=== PATIENT | female | born 1990 | race Caucasian/White ===

== ENCOUNTER 2016-06-30 20:10 | Emergency (ER) | payer BC ==
[2016-06-30 20:33] VITALS: RESP 18
[2016-06-30 22:16] LABS: Appearance,Urine Clear (Clear); Bilirubin,Urine Negative (Negative); Glucose,Urine (UA) Negative (Negative); Ketones,Urine Negative (Negative); Leukocyte Esterase,Urine Negative (Negative); Nitrite,Urine Negative (Negative); Protein,Urine Negative (Negative); Specific Gravity,Urine 1.012 (1.001-1.035); UA Billing (MACRO vs. MICRO) CHEM; Urobilinogen,Urine <2.0 mg/dL (<2.0)
--- NOTE | 2016-06-30 22:51 | ED ---
Female Urogenital HPI - General Chief complaint: Vaginal Bleeding Stated complaint: vaginal bleeding/14 wks preg Time Seen by Provider: 06/30/16 21:48 Source: patient, RN notes reviewed Mode of arrival: ambulatory - History of Present Illness Initial comments: 26-year-old female presents to the emergency department with a chief complaint of vaginal discharge. Patient states that she has had a clear vodka done a week ago. Patient states today she has had a gush of fluid that was yellow week clear. Patient states that since resolved but now she is having like a yellow white brownie-type discharge. Patient states she's been no pain or cramping. Patient states she called her OUTPATIENT PHARMACY MANAGER and she was referred here. Patient is a . Patient states that at this time she is not having any symptoms besides little bit of brown-like discharge. Patient denies any other complaints. Patient denies any recent fever, chills, shortness of breath, chest pain, back pain, abdominal pain, nausea vomiting, numbness or tingling, dysuria or hematuria, constipation or diarrhea, headaches or visual changes, or any other current symptoms. - Related Data Home Medications Medication Instructions Recorded Confirmed Pnv with Ca,No.72/Iron/FA 1 tab PO DAILY 02/23/16 06/23/16 [ Plus Tablet] Allergies Allergy/AdvReac Type Severity Reaction Status Date / Time clindamycin Allergy Rash/Hives Verified 06/30/16 20:33 Penicillins Allergy Rash/Hives Verified 06/30/16 20:33 Review of Systems ROS Statement: Those systems with pertinent positive or pertinent negative responses have been documented in the HPI. ROS Other: All systems not noted in ROS Statement are negative. Past Medical History Past Medical History: Mitral Valve Prolapse (MVP) Additional Past Medical History / Comment(s): MVP possibly resolved recently per pt., recent antibiotic for sore throat. developed uterine infection 2 days pp after 1st delivery (23wks) History of Any Multi-Drug Resistant Organisms: None Reported Additional Past Surgical History / Comment(s): expl lap 2012 to r/o ectopic, D & C, wisdom teeth Past Anesthesia/Blood Transfusion Reactions: No Reported Reaction Past Psychological History: Anxiety Additional Psychological History / Comment(s): not medicated Smoking Status: Former smoker Past Alcohol Use History: None Reported Additional Past Alcohol Use History / Comment(s): social before Past Drug Use History: None Reported - Past Family History Mother Family Medical History: Cancer General Exam - General Exam Comments Initial Comments: General: The patient is awake and alert, in no distress, and does not appear acutely ill. Eye: Pupils are equal, round and reactive to light. Ears, nose, mouth and throat: There are moist mucous membranes. Neck: The neck is supple, there is no tenderness. Cardiovascular: There is a regular rate and rhythm. No murmur, rub or gallop is appreciated. Respiratory: Lungs are clear to auscultation, respirations are non-labored, breath sounds are equal. No wheezes, stridor, rales, or rhonchi. Gastrointestinal: Soft, non-distended, non-tender abdomen without masses or organomegaly noted. There is no rebound or guarding present. No CVA tenderness. Bowel sounds are unremarkable. Back: There is no tenderness to palpation in the midline. There is no obvious deformity. No rashes noted. Musculoskeletal: Normal ROM, no tenderness, There is no pedal edema. There is no calf tenderness or swelling. Sensation intact. Pulses equal bilaterally 2+. Neurological: CN II-XII intact, There are no obvious motor or sensory deficits. Coordination appears grossly intact. Speech is normal. Skin: Skin is warm and dry and no rashes or lesions are noted. Psychiatric: Cooperative, appropriate mood & affect, normal judgment. External exam: Present: normal external exam Speculum exam: Present: vaginal discharge (White, brown, mucus), other ( Cervical eyes appears closed, cerlvage intact). Absent: erythema, cervical discharge, vaginal bleeding, foreign body Course Vital Signs 06/30/16 20:28 Temperature 98.2 F Pulse Rate 87 Respiratory 18 Rate Blood Pressure 111/63 O2 Sat by Pulse 99 Oximetry Medical Decision Making - Medical Decision Making 26-year-old female presents for vaginal discharge. At this time patient's discharge is more mucousy with brown. At this time we just discussed Dr. Salvador the case due to the fact that she did complain of a gush of fluid. Ultrasound shows a single live uterine . This time we discussed follow -up with the OB and return parameters. Patient stated that she understood HAVE been answered. She'll be discharged. - Lab Data Lab Results 06/30/16 Range/Units 21:50 Urine Color Yellow Urine Appearance Clear (Clear) Urine pH 6.0 (5.0-8.0) Ur Specific [place] 1.012 (1.001-1.035) Urine Protein Negative (Negative) Urine Glucose (UA) Negative (Negative) Urine Ketones Negative (Negative) Urine Blood Negative (Negative) Urine Nitrate Negative (Negative) Urine Bilirubin Negative (Negative) Urine Urobilinogen <2.0 (<2.0) mg/dL Ur Leukocyte Esterase Negative (Negative) - Radiology Data Radiology results: report reviewed, image reviewed Disposition Clinical Impression: Vaginal discharge during Disposition: HOME SELF-CARE Condition: Stable Instructions: (ED) Additional Instructions: Please use medication as discussed. Please follow up with family doctor if symptoms have not improved over the next two days. Please return to the emergency room if your symptoms increase or worsen or for any other concerns. Referrals: Maximo Olsen DO [Primary Care Provider] - 1-2 days Asmita Veliz MD [STAFF PHYSICIAN] - 1-2 days Time of Disposition: 00:16
--- NOTE | 2016-07-01 00:08 | US ---
EXAMINATION TYPE: US OB >= 14 wk fetus DATE OF EXAM: 06/30/2016 11:24 PM COMPARISON: 05/03/2016 CLINICAL HISTORY: patient had cerclage done last week, gush of fluid today and noticed some blood TECHNIQUE: TA OB GESTATIONAL AGE / DATING Physician Established: (14 weeks/2 days) EDC: 12/27/2016 Dates by LMP: unknown Dates by First Scan: (14 weeks/2 days) EDC: 12/27/2016 Dates by Current Scan: (15 weeks/3 days) EDC: 12/19/2016 SURVEY IUP: Single PLACENTA: Anterior PREVIA: No Previa GABBI: 12.9 cm CERVICAL LENGTH (transabdominal: norm > 3.0cm): 3.4 cm Amniotic membranes are seen.. BIOMETRY PRESENTATION: Variable BPD: 2.9 cm 15 weeks / 3 days HC: 10.9 cm 15 weeks / 2 days AC: 9.3 cm 15 weeks / 3 days FL: 1.6 cm 14 weeks / 4 days ESTIMATED WEIGHT IN GRAMS: 112 grams ESTIMATED WEIGHT IN LBS/OZS: 0 lbs. 4 oz. WEIGHT PERCENTAGE BASED ON ESTABLISHED DATES: 85% HC/AC: 1.1 Normal FL/AC: 16.7 Normal HEART RATE: 140 bpm RHYTHM: Normal LMP age is 14 weeks and 2 days with MARI by LMP of 12/27/2016. IMPRESSION: 1. Single live intrauterine with estimated age by current ultrasound of 15 weeks and 3 days with heart rate of 140 bpm with MARI of 12/19/2016. 2. Cervix is closed measuring 3.4 cm in length. 3. Placenta is anterior in location without abruption changes.
[2016-07-01 00:23] VITALS: BP 128/68; PULSE 78; TEMP 97
== END 2016-07-01 00:24 | disposition home or self-care (01) ==
LOC: EC 20:10
DX: O26.891 Other specified pregnancy related conditions, first trimester (principal); N89.8 Other specified noninflammatory disorders of vagina; Z3A.14 14 weeks gestation of pregnancy; Z87.891 Personal history of nicotine dependence; Z88.0 Allergy status to penicillin; Z88.1 Allergy status to other antibiotic agents
CPT/HCPCS: 76805; 81003; 99284

== ENCOUNTER → 2016-09-22 | Outpatient (CLI) | payer BC | LOC: LABWHC1 09:44 | PROVIDERS: ATTEND Obstetrics & Gynecology | DX: Z36 Encounter for antenatal screening of mother (principal) | CPT/HCPCS: 36415; 82950 ==

== ENCOUNTER 2016-12-21 06:15 | Inpatient (IN) | payer BC ==
--- NOTE | 2016-12-21 06:52 | P.HPOB ---
History of Present Illness H&P Date: 12/21/16 Chief Complaint: Here for induction with multiparous favorable cervix at 39 and one sevenths This is a 26-year-old white female 6 para 2032 EDC 12/27/2016 at 39 and one sevenths weeks' gestation. Patient presents today for induction with favorable multiparous cervix. Fetus is been active throughout the . She denies fluid leakage or vaginal bleeding. Obstetric history is significant for incompetent cervix, cerclage was placed and then removed at 37 weeks gestation. Blood type is B+, rubella status nonimmune. Pap smear, gonorrhea and chlamydia cultures, HIV testing, hepatitis B surface antigen and group B strep cultures all negative. One-hour Glucola 108. 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 History of incompetent cervix is also noted. She has a history of kidney stones, valve leakage with normal EKG, history of hemorrhoids, and a history of anxiety. Past surgical history is significant for cerclage placement, colonoscopy, colposcopy, D&C, diagnostic laparoscopy, wisdom teeth extracted. Current medications vitamins daily. Tylenol with Codeine as needed every 6 hours. ALLERGIES include clindamycin to which reports a rash, penicillin to which reports a rash. Family history is significant for breast cancer, diabetes and stroke. Obstetric history is significant for normal spontaneous vaginal deliveries 2, P PROM with loss of at 23 weeks gestation, and miscarriages. On exam this is a pleasant white female, 5 foot 2 inches, 144 pounds, vital signs are stable and she is afebrile. The general physical exam is within normal limits. The chest is clear in all carranza. The extremities reveal no edema. Cervix is 3 cm dilated, 60-70% effaced, -2 station, soft and anterior, vertex presentation. Artificial amniorrhexis reveals clear fluid. heart tones are in the 140s with frequent accelerations consistent with reactive NST. Impression: 39 and one sevenths weeks intrauterine , history of incompetent cervix with cerclage removed. Patient here for elective induction of labor with increasing maternal discomfort. Plan: Close maternal and surveillance. Oxytocin per hospital protocol. Anticipate normal spontaneous vaginal delivery. Review of Systems Negative except as in HPI Past Medical History Past Medical History: Mitral Valve Prolapse (MVP) Additional Past Medical History / Comment(s): MVP possibly resolved recently per pt., recent antibiotic for sore throat. developed uterine infection 2 days pp after 1st delivery (23wks) History of Any Multi-Drug Resistant Organisms: None Reported Additional Past Surgical History / Comment(s): expl lap 2013 to r/o ectopic, D & C, wisdom teeth Past Anesthesia/Blood Transfusion Reactions: No Reported Reaction Past Psychological History: Anxiety Additional Psychological History / Comment(s): not medicated Smoking Status: Former smoker Past Alcohol Use History: None Reported Additional Past Alcohol Use History / Comment(s): social before Past Drug Use History: None Reported - Past Family History Mother Family Medical History: Cancer Medications and Allergies Home Medications Medication Instructions Recorded Confirmed Type Pnv,Calcium 72/Iron/Folic Acid 1 tab PO DAILY 02/23/16 06/23/16 History [ Plus Tablet] Allergies Allergy/AdvReac Type Severity Reaction Status Date / Time clindamycin Allergy Rash/Hives Verified 12/21/16 06:41 Penicillins Allergy Rash/Hives Verified 12/21/16 06:41 Exam - Vital Signs Vital signs: Intake and Output 12/20/16 12/20/16 12/21/16 14:59 22:59 06:59 Other: Weight 65.317 kg Patient Weight 12/21/16 06:59 Weight 65.317 kg As dictated under HPI Assessment and Plan Plan: Close maternal and surveillance. Oxytocin per hospital protocol. Anticipate normal spontaneous vaginal delivery. Time with Patient: Less than 30
[2016-12-21] MEDS ORDERED: METHYLERGONOVINE 0.2 MG/ML 1 ML AMP IM PRN (06:54)
[2016-12-21] MEDS ORDERED: OXYTOCIN 10 UNIT/ML 1 ML VIAL IM PRN (06:54)
[2016-12-21] MEDS ORDERED: LIDOCAINE 1% (PF) 10 MG/ML (30 ML SDV) SQ PRN (06:54)
[2016-12-21] MEDS ORDERED: TERBUTALINE 1 MG/ML VIAL SQ PRN (06:54)
[2016-12-21] MEDS ORDERED: CARBOPROST TROMETHAMINE 250 MCG/ML 1 ML AMP IM PRN (06:54)
[2016-12-21] MEDS: OXYTOCIN 20 UNITS/1000 ML NS 1,000 ML IV SCH (07:07)
[2016-12-21] MEDS: LACTATED RINGERS 1,000 ML IV SCH ×2 (07:07→11:08)
[2016-12-21 07:15] LABS: Basophils % (A) 0 %; CH 29.7; CHCM 34.9; Eosinophils # (A) 0.2 k/uL (0-0.7); Eosinophils % (A) 1 %; HCT 36.7 % (34.0-46.0); HDW 2.51; HGB 13.3 gm/dL (11.4-16.0); Luc # (Auto) 0.21; Luc % (Auto) 2; Lymphocytes # (A) 2.1 k/uL (1.0-4.8); Lymphocytes % (A) 17 %; MCHC 36.3 g/dL (31.0-37.0); MCV 85.5 fL (80.0-100.0); Mean Platelet Volume 7.7; Monocytes # (A) 0.5 k/uL (0-1.0); Monocytes % (A) 4 %; Neutrophils # (A) 9.9 k/uL (1.3-7.7); Neutrophils % (A) 76 %; RBC 4.29 m/uL (3.80-5.40); RDW 13.3 % (11.5-15.5); WBC 12.9 k/uL (3.8-10.6); WBC (Perox) 13.61
[2016-12-21] MEDS ORDERED: BUTORPHANOL 1 MG/ML 1 ML VIAL IV PRN (08:14)
[2016-12-21 08:46] VITALS: BMI 26.3
[2016-12-21] MEDS ORDERED: BUPIVACAINE (PF) 0.25% 30 ML VIAL ONE ×2 (09:36→15:15)
[2016-12-21] MEDS ORDERED: fentaNYL (PF) 50 MCG/ML 5 ML AMP ONE ×2 (09:36→15:15)
[2016-12-21] MEDS ORDERED: SODIUM CHLORIDE 0.9% 100 ML BAG ONE ×2 (09:36→15:15)
[2016-12-21] MEDS ORDERED: BUPIVACAINE (PF) 0.25% 25 ML, fentaNYL (PF) 200 MCG in SODIUM CHLORIDE 0.9% 71 ML EPIDURAL ONE (09:52)
--- NOTE | 2016-12-21 12:28 | P.PROBDLV ---
Vaginal Delivery Note - . Vaginal Delivery Note: This is a 26-year-old white female 6 para 2031 EDC 12/27/2016 at 39 and one sevenths weeks' gestation. Patient presented for induction with favorable multiparous cervix. is essentially unremarkable. Please see the dictated history and physical for details. Group B strep cultures negative, rubella status immune. Oxytocin augmentation was started and titrated per hospital protocol. Patient became uncomfortable and requested an epidural, this was done per the anesthesia staff. She was judged to be completely dilated at 1209 and began the second stage of labor at that time. She progressed well with excellent maternal expulsive efforts. The perineal body was prepped and draped in usual sterile fashion. Infant's head delivered occiput anterior and he restituted accordingly. There was no nuchal cord noted. The left or anterior shoulder was delivered easily from underneath the pubic symphysis at which time the oropharynx, nasopharynx, and external nares were bulb suctioned on the perineal body. Patient was officially delivered of a liveborn male infant at 1212 hrs. Umbilical cord was doubly clamped and ligated, he was handed to waiting nurses for evaluation where scores of 9 and 9 at one and 5 minutes respectively were given. Infant weighed 2870 g, or 6 lbs. 5 oz. The placenta was delivered spontaneously, it was inspected and noted to be intact with trivascular cord at 1215 hrs. At this time the perineal body was redraped. Inspection of cervix, vagina, perineum, periurethral and perirectal areas revealed no lacerations and no defects. Fundus is firm and in the midline, symmetric and 18 week size upon completion of delivery. Patient and her family are requesting circumcision further son. She will be kept nothing by mouth for tubal sterilization later this afternoon.
[2016-12-21] MEDS ORDERED: IV FLUID CONTINUATION 1,000 ML IV ONE ×2 (14:49)
[2016-12-21] MEDS ORDERED: ONDANSETRON 4 MG/2 ML VIAL IVP ONE (14:50)
[2016-12-21] MEDS ORDERED: LIDOCAINE 1% INJ 10MG/ML (20 ML MDV) ONE (15:15)
[2016-12-21] MEDS ORDERED: SUCCINYLCHOLINE CHLORIDE 100 MG/5 ML SYR IV ONE (15:15)
[2016-12-21] MEDS ORDERED: PROPOFOL 10 MG/ML 20 ML VIAL IV ONE (15:15)
--- NOTE | 2016-12-21 16:05 | P.OP ---
Date of Procedure: 12/21/16 Preoperative Diagnosis: Undesired fertility Postoperative Diagnosis: same Procedure(s) Performed: tubal sterilization utilizing Filshie clips Implants: Anesthesia: GETA Surgeon: Asmita Veliz Traveling Construction Superintendent #1: Stated None Estimated Blood Loss (ml): 10 IV fluids (ml): 200 Urine output (ml): 0 Pathology: none sent Condition: stable Indications for Procedure: Operative Findings: Description of Procedure: Patient is brought to the operating suite where the epidural previously used for labor was "topped off". 30 minutes passed, and yet still the patient did not have adequate analgesia. Therefore the decision was made to utilize general anesthetic. This is administered per Dr. Bhakta. The appropriate timeout was performed to assure proper patient and procedural identification. Abdomen had been prepped and draped in the usual sterile fashion. A infraumbilical incision is made in this is carried down through the subcutaneous tissue to the fascia. Fascia is isolated, scored and extended bilaterally with curved De Jesus scissors. Peritoneum is next identified and incised, there is no bowel or bladder involvement. The left fallopian tube is visualized in its entirety to the fimbriated end. It is grasped with a [place] clamp and a Filshie clip is placed in the isthmic portion of the tube with care to traverse the entire tube into the mesal salpinx. Ovary appears normal to inspection. The same procedure is carried out on the right or contralateral tube, it is grasped gently with a [place] clamp and a Filshie clip is placed in the isthmic portion all the way through the mesal salpinx for complete occlusion. The fimbriated and is visualized. The ovary also appears normal. Peritoneum was allowed close by secondary intention. Fascia is closed in a running stitch of 0 Vicryl. Subcutaneous tissues were approximated with 3-0 Vicryl in a running fashion. 4-0 undyed Vicryl issues for final skin closure. Total estimated blood loss 10 mL's. Patient did well and is brought back to the recovery room in very good condition with stable vital signs including blood pressure 102/46, pulse 65.
[2016-12-21] MEDS ORDERED: HYDROmorphone 1 MG/ML 1 ML SYRINGE IVP ONE ×4 (16:10→16:40)
[2016-12-21] MEDS ORDERED: MIDAZOLAM 2 MG/2 ML VIAL IVP ONE ×2 (16:45→17:00)
[2016-12-21] MEDS ORDERED: KETOROLAC 30 MG/ML 1 ML VIAL IVP ONE (17:01)
[2016-12-21] MEDS ORDERED: LACTATED RINGERS 1,000 ML IV ONE (17:04)
[2016-12-21 17:17] VITALS: RESP 16
[2016-12-21] MEDS ORDERED: diphenhydrAMINE 50 MG CAP PO PRN (18:17)
[2016-12-21] MEDS ORDERED: ACETAMINOPHEN TAB 325 MG TAB PO PRN (18:17)
[2016-12-21] MEDS ORDERED: SIMETHICONE 80 MG CHEWABLE PO PRN (18:17)
[2016-12-21] MEDS ORDERED: BENZOCAINE/MENTHOL SPRAY 1 GM/SPRAY AEROSOL TOPICAL PRN (18:17)
[2016-12-21] MEDS ORDERED: diphenhydrAMINE 50 MG/ML 1 ML VIAL IVP PRN ×2 (18:17)
[2016-12-21] MEDS ORDERED: LANOLIN CREAM 5 GM TUBE TOPICAL PRN (18:17)
[2016-12-21] MEDS ORDERED: WITCH HAZEL 1 EACH MED..PAD TOPICAL PRN (18:17)
[2016-12-21] MEDS ORDERED: ZOLPIDEM 5 MG TAB PO PRN (18:17)
[2016-12-21] MEDS ORDERED: diphenhydrAMINE 25 MG CAP PO PRN (18:17)
[2016-12-21] MEDS ORDERED: HYDROCORTISONE 2.5% RECTAL CREAM 30 GM TUBE RECTAL PRN (18:17)
[2016-12-21] MEDS: SENNOSIDES-DOCUSATE SODIUM 1 EACH TAB PO SCH (20:48)
[2016-12-22] MEDS: Acetaminophen-Codeine 300-30mg TAB PO PRN ×3 (01:28→10:21)
[2016-12-22] MEDS: IBUPROFEN 600 MG TAB PO PRN ×2 (02:07→08:15)
[2016-12-22] MEDS: LACTATED RINGERS 1,000 ML IV SCH ×2 (04:04→07:27)
[2016-12-22] MEDS: OXYTOCIN 20 UNITS/1000 ML NS 1,000 ML IV SCH (07:27)
[2016-12-22] MEDS: SENNOSIDES-DOCUSATE SODIUM 1 EACH TAB PO SCH (08:16)
--- NOTE | 2016-12-22 08:34 | P.PN ---
Subjective Principal diagnosis: post #1 Patient reports abdominal discomfort, no flatus passed since tubal ligation yesterday. Minimal lochia rubra. Objective - Vital Signs Vital signs: Vital Signs Temp 98.5 F 12/22/16 00:00 Pulse 70 12/22/16 00:00 Resp 16 12/22/16 00:00 BP 122/74 12/22/16 00:00 Pulse Ox 96 12/21/16 17:25 Intake & Output 12/21/16 12/22/16 12/22/16 18:59 06:59 18:59 Intake Total 700 Output Total 1810 Balance -1110 Weight 65.317 kg Intake: IV 700 Output: Urine 1600 Straight 800 Estimated Blood Loss 210 - Constitutional General appearance: Present: average body habitus, cooperative - EENT Eyes: Present: PERRLA - Neck Neck: Present: normal ROM - Respiratory Respiratory: bilateral: CTA - Cardiovascular Rhythm: regular - Gastrointestinal General gastrointestinal: Present: distended, normal bowel sounds Localized gastrointestinal: tender: diffuse (mild tenderness, incision clean and dry, well approximated) - Genitourinary Genitourinary Comment(s): uterus midline, at umbilicus, nontender. - Integumentary Integumentary: Present: normal - Neurologic Neurologic: Present: CNII-XII intact - Musculoskeletal Musculoskeletal: Present: gait normal, strength equal bilaterally - Psychiatric Psychiatric: Present: A&O x's 3, appropriate affect, intact judgment & insight - Labs CBC & Chem 7: 12/21/16 07:00 Assessment and Plan Plan: Continue and postoperative care today. Possible discharge home later today, pending patient's ability to pass flatus. Will order abdominal binder for support. Circumcision to be performed this morning. Time with Patient: Less than 30
[2016-12-22 10:49] VITALS: BP 126/66; PULSE 88; TEMP 99
== END 2016-12-22 13:50 | disposition home or self-care (01) | DRG 767 ==
LOC: 4FBP 06:19
PROVIDERS: ADMIT Obstetrics & Gynecology; ATTEND Obstetrics & Gynecology
PROC: 10E0XZZ Delivery of Products of Conception, External Approach (ICD-10-PCS; principal; 2016-12-21 15:00)
PROC: 3E033VJ Introduction of Other Hormone into Peripheral Vein, Percutaneous Approach (ICD-10-PCS; principal; 2016-12-21 15:00)
PROC: 10907ZC Drainage of Amniotic Fluid, Therapeutic from Products of Conception, Via Natural or Artificial Opening (ICD-10-PCS; principal; 2016-12-21 15:00)
PROC: 3E0R3CZ (ICD-10-PCS; principal; 2016-12-21 15:00)
PROC: 00HU33Z Insertion of Infusion Device into Spinal Canal, Percutaneous Approach (ICD-10-PCS; principal; 2016-12-21 15:00)
PROC: 0UB70ZZ Excision of Bilateral Fallopian Tubes, Open Approach (ICD-10-PCS; principal; 2016-12-21 15:00)
DX: O34.33 Maternal care for cervical incompetence, third trimester (principal); Z88.0 Allergy status to penicillin; Z37.0 Single live birth; Z87.891 Personal history of nicotine dependence; Z30.2 Encounter for sterilization; Z88.1 Allergy status to other antibiotic agents
CPT/HCPCS: 85025; 88307